=== PATIENT | female | born 1990 | race African-American/Black ===

== ENCOUNTER 2017-07-18 12:07 | Inpatient (IN) | payer OTHER ==
[~2017-07-18] VITALS: Ht 157.5 cm; Wt 61.1 kg
--- NOTE | ~2017-07-18 | HC ---
[facility] [place] [address] CONSULTATION Name: NEWMANHARJEET Cruz Yolanda Room #: 516-1 ADM IN M.R.#: [id number] Admission: 07/18/17 Attend Phys: Khai Salmeron MD Discharge: Date of : 89 Report #: [id number] THIS REPORT FOR: //name// CC: Khia Salmeron [facility] unknown DATE OF SERVICE: 07/19/2017 HISTORY OF PRESENT ILLNESS: This is a 26-year-old female patient who has a lot of speech difficulty. History is difficult to get. I do not have a record from [place]. I reviewed the records here and tried to get the history from her. It would appear that she had a pretty severe encephalopathy following a bronchial asthma attack. This patient has developed intention myoclonus. It looks like the neurologist at [place] saw this patient and subsequently, they talked to the [facility] and did multiple testings, like MRI, EEG and LP and that was nonrevealing and she is on Keppra at the moment. She never had this activity prior to this happening. REVIEW OF SYSTEMS: Positive for asthma and what looks like hypoxic encephalopathy. Her speech is markedly impaired. Prior to this, she was healthy. This is her relevant 14-point review of system. PAST MEDICAL HISTORY: Negative for neurological problem. SOCIAL HISTORY: She was independent before this happened. FAMILY HISTORY: Unremarkable. PHYSICAL EXAMINATION: NEUROLOGIC: Her examination is limited. She has a very limited speech. It is very difficult to understand, but she can talk some. I believe her cranial nerve examination the way while it can be done was unremarkable. She moves all 4 extremities, but she has a severe intention tremor in all 4 extremities. She can appreciate the positions as the best I can tell. Reflexes are symmetrical. CARDIAC EXAMINATION: Unremarkable. LUNGS: No respiratory difficulties present. VITAL SIGNS: Blood pressure is 111/75, respiration is 16, pulse is 96 and temperature is 98.2. LABORATORY DATA: Last WBC and CBC were normal. 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 This is very severe. I do not believe any effective treatment is available for this. She has already been referred to the tertiary care center. That is where she should be managed by movement disorder specialist. I do not have anything specific to add and I will suggest contacting [facility] to see if they have anything [address] [address] CONSULTATION Name: NEWMANHARJEET D Room #: 516-1 ADM IN M.R.#: [id number] Admission: 07/18/17 Attend Phys: Khai Salmeron MD Discharge: Date of : 89 Report #: [id number] else to offer, because she should be managed by a movement disorder specialist. Thank you very much for this referral and if you have any questions, please feel free to contact me. <ELECTRONICALLY SIGNED> By: Randolph Merchant MD 07/24/17 [phone] MD raghu Parra
--- NOTE | ~2017-07-18 | PLAN ---
[facility] [place] [address] REHAB UNIT PLAN OF CARE Name: NEWMANHARJEET D Room #: 516-1 ADM IN M.R.#: [id number] Admission: 07/18/17 Attend Phys: Khai Salmeron MD Discharge: Date of : 89 Report #: [id number] THIS REPORT FOR: //name// CC: Khai Salmeron [facility] unknown DATE OF SERVICE: 07/20/2017 ASSESSMENT: 1. Critical illness myopathy. 2. 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 3. Status asthmaticus his intubation 06/24/2017 to 07/02/2017. 4. Cardiac arrest with respiratory failure. 5. Dysphagia. Speech therapy is involved. 6. Significant functional mobility and ADL deficits. 7. Dysarthria. 8. THC abuse. PLAN: The overall plan of care is based on the preadmission screen, post-admission physician evaluation and information garnered from therapy assessments. 1. Estimated length of stay is probably at least 2-3 weeks pending progress. 2. Medical prognosis is reasonably good. 3. Anticipated interventions includes the interdisciplinary acute inpatient rehabilitation program. 4. Anticipated functional outcomes would be for the patient to become modified independent with transfers, mobility and ADLs, so that she can hopefully return back to her prior living situation. Goals to improve overall cognition and communication as well. 5. Anticipated functional outcomes would be for the patient to become as independent as possible to try to get into the home setting. Ideally, we can get her independent at least at the wheelchair level initially. 6. Discharge destination would be back home with significant other. 7. Expected therapy by discipline includes PT and OT and speech 1 hour per day each five days a week throughout the duration of the acute inpatient patient's stay. <ELECTRONICALLY SIGNED> By: Khai Salmeron MD 07/25/17 1645 0924 [id number] Khia Salmeron MD /[facility]
--- NOTE | ~2017-07-18 | PLAN ---
[facility] [place] [address] REHAB UNIT PLAN OF CARE Name: HARJEET NEWMAN Yolanda Room #: 516-1 ADM IN M.R.#: [id number] Admission: 07/18/17 Attend Phys: Khai Salmeron MD Discharge: Date of : 89 Report #: [id number] THIS REPORT FOR: //name// CC: Khai Salmeron [facility] unknown DATE OF SERVICE: 07/20/2017 The patient was seen earlier. She was sleepy, in no distress. Last recorded temperature is 98.2, pulse 96, respirations 16. She has been working in therapies with transfers at a max assist. Gait was mod assist 10 feet parallel bars. Bed mobility was min assist. In occupational therapy, upper body dressing is dependent with lower body dressing dependent. She had mild comprehensive deficits. She is on mechanical soft, thin liquid diet. ASSESSMENT: 1. Critical illness myopathy. <ELECTRONICALLY SIGNED> By: Khai Salmeron MD 07/25/17 1647 0921 0958 Khai Salmeron MD /[facility]
--- NOTE | ~2017-07-18 | HC ---
[facility] [place] [address] CONSULTATION Name: HARJEET NEWMAN Yolanda Room #: 516-1 ADM IN M.R.#: [id number] Admission: 07/18/17 Attend Phys: Khai Salmeron MD Discharge: Date of : 89 Report #: [id number] THIS REPORT FOR: //name// CC: Khai Salmeron [facility] unknown DATE OF SERVICE: 07/19/2017 REASON FOR CONSULTATION: Asthma. IMPRESSION: 1. Respiratory failure with status asthmaticus. 2. Cardiac arrest. 3. Dysphagia. 4. Myopathy, myoclonus. PLAN: Continue aerosol therapy, check for DVT, DVT and ulcer prophylaxis per primary, continuous sat monitor tonight, may discontinue in a.m. if stable. HISTORY OF PRESENT ILLNESS: By report, a 26-year-old female with history of asthma, had status asthmaticus at [facility] with acute hypercapnic respiratory failure, bradycardia and arrest, was in ICU, extubated on 07/02/2017, has had myoclonus, dysphagia since. We will obtain further records. ALLERGIES: None known. MEDICATIONS: Clonazepam, Pepcid, Keppra, albuterol. SOCIAL HISTORY: Negative current tobacco, ETOH, per chart marijuana. FAMILY HISTORY: Noncontributory. PAST SURGICAL HISTORY: In the past included trach when she was a child, taking out at 2. REVIEW OF SYSTEMS: No fever, chills or sweats. History of asthma, myoclonus, dysphagia, recent pneumonia. No dysuria, no edema. No history of DVT or PE. PHYSICAL EXAMINATION: EYES: Negative icterus. NECK: Negative JVD. LUNGS: Mild expiratory wheeze. HEART: Regular. ABDOMEN: Bowel sounds present. Scarred neck. EXTREMITIES: Show no edema. NEUROLOGIC: Alert, oriented, and answers questions appropriately. [facility] [address] [place] [address] CONSULTATION Name: NEWMANHARJEET Room #: 516-1 ADM IN [facility]#: [id number] Admission: 07/18/17 Attend Phys: Khai Salmeron MD Discharge: Date of : 89 Report #: [id number] LABORATORY DATA: White count is 9.7, hemoglobin 10.5, platelets 270. BUN is 14, creatinine 0.6. UA negative. <ELECTRONICALLY SIGNED> By: Chas Wyatt MD 07/24/17 1922 1550 0344 Chas Wyatt MD /nt
--- NOTE | ~2017-07-18 | H ---
[facility] [place] [address] HISTORY AND PHYSICAL Name: HARJEET NEWMAN Yolanda Room #: 516-1 ADM IN M.R.#: [id number] Admission: 07/18/17 Attend Phys: Khai Salmeron MD Discharge: Date of : 89 Report #: [id number] THIS REPORT FOR: //name// CC: Khai Salmeron [facility] unknown DATE OF SERVICE: 07/18/2017 HISTORY AND PHYSICAL/POST-ADMISSION PHYSICIAN EVALUATION HISTORY OF PRESENT ILLNESS: The patient is a 26-year-old -[place] female who was admitted to [facility] on 06/24/2017 with shortness of breath with acute hypercapnic respiratory failure with status asthmaticus. She was noted to be hypoxic, was intubated in the Emergency Department. She continued on intubation until 07/02/2017. She had a cardiac arrest in the Emergency Department. She was noted to have the findings of significant myoclonus noted to be an action myoclonus. Neurology was involved at [facility] and they were in contact with Neurology, Dr. Saunders at [facility]. [facility] suggested Nino-Hoyt syndrome. Head CT, brain MRI without contrast, EEG, LP for CSF exam showed no evidence of acute CVA, brain tumor, cysts, seizure activity, meningitis, multiple sclerosis, lupus, etc. The patient is on Keppra, which she feels helps with the myoclonus and clonazepam. This is noted to be an action myoclonus, which is worse with attempted activity, better with rest. The patient also had significant swallowing difficulties and was on TPN for a considerable period of time and then was able to begin swallowing. At the time of discharge, she is noted to be taking about 75% of her meals over at [place]. She is noted to have significant functional mobility and ADL deficits and has now been admitted for acute in-hospital inpatient rehabilitation. PAST MEDICAL HISTORY: Asthma. She had the recent events as noted above. PAST SURGICAL HISTORY: Negative. HABITS: No history of tobacco or alcohol abuse. There is a history of marijuana usage. MEDICATIONS: Please see the full medication listing as noted. Each of these was individually reconciled and includes vitamins, herbals, and supplements. ALLERGIES: No known drug allergies. SOCIAL HISTORY: She has 4 children. She was previously fully independent. Apparently worked as a [employer] in the past. Plans on living with her significant other in a house. She apparently is not working outside the home at this time and is busy transporting the children and caring for the children. There [address] [place] [address] HISTORY AND PHYSICAL Name: HARJEET NEWMAN Yolanda Room #: 516-1 [facility] IN [facility].#: [id number] Admission: 07/18/17 Attend Phys: Khai Salmeron MD Discharge: Date of : 89 Report #: [id number] steps into the house. REVIEW OF SYSTEMS: Did not offer any current complaints of chest pain, shortness of breath or abdominal discomfort. She notes that the myoclonus is improved after the Keppra. No focal extremity pain complaints. PHYSICAL EXAMINATION: GENERAL: She is a pleasant 26-year-old -[place] female in no obvious distress. VITAL SIGNS: Last recorded temperature is 98.3, pulse 103, respirations 18, blood pressure 110/65. HEENT: The patient is alert. She is pleasant. She is thin. She has soft speech and has difficulty finishing long sentences due to fatigue. She has to talk slowly. EOMs appeared to be full. Facies are symmetric. CHEST: Sounded clear to auscultation. CARDIOVASCULAR: Regular rate and rhythm. ABDOMEN: Bowel sounds positive, nontender. GENITOURINARY AND RECTAL: Deferred. She was sitting on the edge of the bed. I tried to test her upper and lower extremities forward range of motion and volitional movement, but whenever I tried to last picker the extremity or do a gentle range, she would essentially go into a myoclonic episode involving both upper and lower extremities with extension of the upper and lower extremities. This would last for a brief period of a few seconds and then settled down again. If she attempted to move her arm. She again would trigger the myoclonic episode. There is no focal calf swelling. She has been needing assistance with functional transfers noted to vary some and has been at a mod assist. ASSESSMENT: A 26-year-old -[place] female with the following problem list: 1. Critical illness myopathy. 2. Action myoclonus post-cardiac arrest. 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 3. Status asthmaticus with intubation on 06/24/2017 to 07/02/2017. 4. Cardiac arrest with respiratory failure. 5. Dysphagia. She is now on a special diet per speech therapy. She is on thin liquids. 6. Significant functional mobility and activities of daily living deficits. 7. Dysarthria. She has difficulty with prolonged sentences secondary to fatigue. 8. Tetrahydrocannabinol abuse. PLAN: From a postadmission physician evaluation perspective, there are no relevant changes since the preadmission screening. Please see the above review of prior and current medical and functional conditions and comorbidities. Please see the patient's previous and current functional status. As far as risk of complications, the patient does have the above noted comorbidities. Initial [facility] [address] [place] [address] HISTORY AND PHYSICAL Name: HARJEET NEWMAN Yolanda Room #: 516-1 ADM IN M.R.#: [id number] Admission: 07/18/17 Attend Phys: Khai Salmeron MD Discharge: Date of : 89 Report #: [id number] plan of care involves the interdisciplinary acute inpatient rehabilitation program with the goal of maximizing the patient's functional independence, so that she can hopefully return back to her prior living situation. Prognosis is reasonably good with estimated length of stay probably several weeks. Potential barriers would include her multiple medical comorbidities with her decreased functional status. Internal Medicine has been consulted and I am going to ask Neurology to follow along as well to help monitor her medication management for the action myoclonus. We are hoping to maximize her functional independence here on the rehab manzo, so we can get her back into the home setting with her significant other. <ELECTRONICALLY SIGNED> By: Khai Salmeron MD 07/25/17 1643 0819 0917 Khai Salmeron MD /[facility]
--- NOTE | ~2017-07-18 | HC ---
[facility] [place] [address] CONSULTATION Name: HARJEET NEWMAN Yolanda Room #: 516-1 ADM IN M.R.#: [id number] Admission: 07/18/17 Attend Phys: Khai Salmeron MD Discharge: Date of : 89 Report #: [id number] THIS REPORT FOR: //name// CC: Khai Salmeron [facility] unknown DATE OF SERVICE: 07/21/2017 Neurobehavioral Status Exam: ATTENDING PHYSICIAN: Khai Salmeron MD. GOLF CART REPAIRER: Gildardo Hernandez, PhD. CLINICAL PRESENTATION: The patient is a 26-year-old female admitted to the [facility] rehabilitation unit for comprehensive inpatient rehabilitation program to improve functional mobility, activities of daily living and self-care and mental status secondary to deficits from a critical illness myopathy. Her diagnoses include acute myoclonus post-cardiac arrest consistent with Nino-Hoyt syndrome, status asthmaticus with intubation on 06/24/2017-07/02/2017, cardiac arrest with respiratory failure, dysphagia, significant functional mobility and activities of daily living deficits, dysarthria and tetrahydrocannabinol abuse. A complete description of her medical condition and history along with medications can be found in her medical record. Neuropsychological consultation was requested to provide assistance in the assessment of cognitive and emotional status and to provide recommendations and services. Prior to this most recent medical event, she was living independently in her own home with a significant other. She had been living with the father of her children. The patient has four children. She is a high school graduate with one brother. She does not report a history of treatment for depression/anxiety, substance abuse or cognitive deficits from concussion. 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 TECHNIQUES UTILIZED: Clinical interview, review of medical records, staff consultation and behavioral observation, mini mental status exam 2 standard version. EXAMINATION FINDINGS: The patient was alert and cooperative with the assessment. She accurately described having "coded" as the reason for her current need for treatment. Her speech is very effortful and weak. Breathe support during expressive speech is poor. She reports subjective feelings of anxiety and sadness about her current condition. She does not report difficulty with memory or word finding, although speech is very effortful. [facility] [address] [place] [address] CONSULTATION Name: NEWMANHARJEET D Room #: 516-1 [facility] IN [facility].#: [id number] Admission: 07/18/17 Attend Phys: Khai Salmeron MD Discharge: Date of : 89 Report #: [id number] Her performance on the MMSE 2 brief version is in the moderate range of impairment with a raw score of 13-16, T score 28, percentile rank of 1. She was 3/3 for initial registration, 5/5 for orientation to time and 5/[address]. She was 0/3 for immediate recall of 3 items after a brief time delay and distraction. Performance on the MMSE 2 standard version was 22/30, which is a T score 22 and a percentile rank of less than 1, which suggests moderate to severe impairment. She was 1/5 for serial sevens, 2/2 for naming, 1/1 for repetition, 3/3 for auditory comprehension. She could read and follow a single command. She presents with a severe upper extremity tremor which interferes with writing and constructive tasks. She was able to dictate a sentence. This type of presentation suggests fairly severe impairment in memory and moderate to severe deficits in concentration. She is alert and well oriented. DIAGNOSTIC IMPRESSION: Neurocognitive disorder, due to hypoxia, without behavior disorder -- extent to be determined, moderate at this time. Adjustment disorder with anxious mood. RECOMMENDATIONS: The patient will benefit from frequent praise and compliments about her participation and success during therapies. Continued orientation and repetition to assist general cognitive functioning. Deficits in memory are likely to persist and interfere with follow-through and carryover of newly learned tasks. Additionally, it will be important for her to sustain attention and concentrate with completion of one task at a time. A followup neuropsychological evaluation will be of benefit in approximately 3 months post-hospitalization to clarify the severity of cognitive deficits. At this time, the patient will require 24-hour care to assist with the management of medication, nutrition and financial decision making. Disability is indicated. Thank you very much for allowing me to provide the consultation on this patient. <ELECTRONICALLY SIGNED> By: Gildardo Hernandez, PhD 07/24/17 1916 1619 07 Gildardo Hernandez, PhD /nt
[2017-07-18 18:18] VITALS: BP 101/73
[2017-07-18 19:28] VITALS: BP 110/65
[2017-07-19 06:16] LABS: HEMATOCRIT 32.1 % (37.0-47.0); HEMOGLOBIN 10.5 gm/dL (12.0-15.0); MCH 26.5 pg (26.0-34.0); MCHC 32.8 g/dL (28.0-37.0); MCV 80.9 fL (80.0-100.0); RBC 3.97 mil/uL (4.20-5.00); RDW 15.8 % (10.5-14.5); WBC 9.7 thou/uL (4.0-11.0)
[2017-07-19 06:28] LABS: CALCIUM 9.1 mg/dL (8.5-10.1); CREATININE 0.6 mg/dL (0.6-1.0); POTASSIUM 3.7 mmol/L (3.5-5.1)
[2017-07-19 06:55] LABS: URINE BILIRUBIN NEGATIVE (Negative); URINE BLOOD NEGATIVE (Negative); URINE CLARITY CLEAR; URINE COLOR YELLOW; URINE GLUCOSE-RANDOM* NEGATIVE (Negative); URINE KETONES NEGATIVE (Negative); URINE LEUKOCYTES-REFLEX NEGATIVE (Negative); URINE NITRITE-REFLEX NEGATIVE (Negative); URINE PROTEIN (DIPSTICK) NEGATIVE (Negative); URINE SPECIFIC GRAVITY 1.025 (1.005-1.035); URINE UROBILINOGEN 0.2 E.U./dl (0.2-1.0)
[2017-07-19 08:00] VITALS: BP 111/75
[2017-07-19 19:56] VITALS: BP 95/66
[2017-07-19 23:04] LABS: TSH 1.122 uIU/mL (0.358-3.740)
[2017-07-20 07:02] VITALS: BP 88/57
[2017-07-20 09:17] VITALS: BP 96/66
[2017-07-20 20:01] VITALS: BP 98/64
[2017-07-21 08:00] VITALS: BP 95/63
[2017-07-21 19:37] VITALS: BP 94/62
[2017-07-22 07:30] VITALS: BP 94/66
[2017-07-22 19:10] VITALS: BP 90/62
[2017-07-23 08:15] VITALS: BP 103/55
[2017-07-23 19:58] VITALS: BP 94/61
[2017-07-24 08:00] VITALS: BP 106/57
[2017-07-24 19:43] VITALS: BP 90/58
[2017-07-25 08:00] VITALS: BP 104/68
[2017-07-25 20:40] VITALS: BP 108/76
[2017-07-26 08:00] VITALS: BP 93/53
[2017-07-26 20:30] VITALS: BP 96/54
[2017-07-27 08:15] VITALS: BP 100/69
[2017-07-27 20:07] VITALS: BP 99/60
[2017-07-28 10:08] VITALS: BP 100/64
[2017-07-28 19:58] VITALS: BP 103/69
[2017-07-29 09:01] VITALS: BP 93/69
[2017-07-29 19:57] VITALS: BP 107/61
[2017-07-30 08:00] VITALS: BP 103/66
[2017-07-30 20:17] VITALS: BP 101/57
[2017-07-31 08:00] VITALS: BP 105/72
[2017-07-31 20:01] VITALS: BP 91/67
[2017-08-01 08:00] VITALS: BP 107/72
[2017-08-01] MEDS ORDERED: CLONAZEPAM 0.50.5 M1 PO (13:23)
[2017-08-01] MEDS ORDERED: COLACE100 MG PO (13:24)
[2017-08-01] MEDS ORDERED: KEPPRA 500 MG500 M1 PO (13:24)
[2017-08-01] MEDS ORDERED: PULMICORT0.5 MG/21 INH (13:24)
[2017-08-01] MEDS ORDERED: ALBUTEROL2.5 MG/31 INH (13:24)
[2017-08-01] MEDS ORDERED: DUONEB 2.5-0.5 M3 ML INH (13:24)
[2017-08-01 20:02] VITALS: BP 100/67; BP 115/53
[2017-08-02 08:42] VITALS: BP 100/67
[2017-08-02 09:00] VITALS: BP 103/51
[2017-10-22] MEDS ORDERED: KEPPRA 500 MG500 M1 PO (15:02)
[2017-10-23] MEDS ORDERED: COLACE100 MG PO (10:19)
[2017-10-23] MEDS ORDERED: CLONAZEPAM 0.50.5 M1 PO (10:19)
[2017-11-05] MEDS ORDERED: DUONEB 2.5-0.5 M3 ML INH (14:01)
[2017-11-05] MEDS ORDERED: CYCLOBENZAPRINE5 MG PO (14:01)
[2017-11-05] MEDS ORDERED: PEPCID20 MG PO (14:01)
[2017-11-05] MEDS ORDERED: AMBIEN 5 MG TABL5 MG PO (14:01)
[2017-11-05] MEDS ORDERED: IBUPROFEN 400400 M2 PO (14:01)
[2017-11-05] MEDS ORDERED: ENOXAPARIN40 MG/0.1 SUBQ (14:01)
[2017-11-05] MEDS ORDERED: CLONAZEPAM 0.50.5 M1 PO (14:01)
[2017-11-05] MEDS ORDERED: MIRALAX17 GM PO (14:01)
[2017-11-05] MEDS ORDERED: KEPPRA 500 MG500 MG PO (14:01)
== END 2017-08-02 12:53 | disposition home health service (06) | DRG 91 ==
PROVIDERS: Nurse Practitioner; Physical Medicine & Rehabilitation; Psychiatry & Neurology Neuromuscular Medicine
DX: G72.81 Critical illness myopathy (principal); J96.91 Respiratory failure, unspecified with hypoxia; J45.909 Unspecified asthma, uncomplicated; G72.9 Myopathy, unspecified; G25.3 Myoclonus; F12.10 Cannabis abuse, uncomplicated; R47.1 Dysarthria and anarthria; R41.9 Unspecified symptoms and signs involving cognitive functions and awareness; F43.22 Adjustment disorder with anxiety; R26.81 Unsteadiness on feet; I45.9 Conduction disorder, unspecified; D64.9 Anemia, unspecified; R13.10 Dysphagia, unspecified; Z86.74 Personal history of sudden cardiac arrest; Z93.0 Tracheostomy status; Z28.21 Immunization not carried out because of patient refusal
CPT/HCPCS: 10092; 10112

== ENCOUNTER 2017-11-05 15:54 | Inpatient (IN) | payer OTHER ==
[~2017-11-05] VITALS: Ht 157.5 cm; Wt 58.7 kg
--- NOTE | ~2017-11-05 | H ---
[facility] [place] [address] HISTORY AND PHYSICAL Name: NEWMANHARJEET Room #: 506-1 [facility] IN M.R.#: [id number] Admission: 11/05/17 Attend Phys: Khai Salmeron MD Discharge: 11/14/17 Date of : 88 Report #: [id number] THIS REPORT FOR: //name// CC: Khai Salmeron [facility] unknown DATE OF SERVICE: 11/06/2017 HISTORY AND PHYSICAL/POSTADMISSION PHYSICIAN EVALUATION HISTORY OF PRESENT ILLNESS: The patient is a 26-year-old -[place] female previously known to me, originally admitted to [facility] on 06/24/2017 with shortness of breath, acute hypercapnic respiratory failure with status asthmaticus. She was intubated, continued on intubation until 07/02/2017. She had a cardiac arrest, was noted to have significant findings of noted to be action myoclonus. Neurology was involved at [facility] and they were in contact with Neurology, Dr. Saunders at [facility]. [facility] suggested Nino-Hoyt syndrome. The patient had a thorough workup at that time. She was placed on Keppra, which she felt helped the myoclonus as well as clonazepam. She was noted to have an action myoclonus worse with attempted activity, better with rest. She was on the inpatient rehabilitation manzo at [facility] from 07/18/2017 through 08/02/2017. She was discharged at that time on clonazepam 0.5 t.i.d. with Keppra 500 mg tablet dose of 1500 mg b.i.d. She apparently did not have any home healthcare as she indicated that she did not have a permanent address for them to come out to see her. She had been living with her significant other and their children and apparently going back and forth between a couple of homes that the patient's significant other's parents have. He is typically gone during the day caring for the children and she is at home and has been wheelchair bound. She has had problems with frequent falls and utilizing the wheelchair. The only time she was able to ambulate was when he would hold on to her with a gait belt. She was readmitted to [facility]. Internal Medicine has been caring for her and noted that the longstanding palsy from the anoxic brain injury is unlikely to recover. [employer] has been involved with attempts to obtain disability and possibly a usp bed. She has now been readmitted for acute in-hospital inpatient rehabilitation. PAST MEDICAL HISTORY: Well delineated above. She had the respiratory failure, cardiac arrest, severe asthma with events as noted above. PAST SURGICAL HISTORY: Negative. HABITS: No history of tobacco or alcohol abuse. MEDICATIONS: Please see the full medication listing. Each of these was individually reconciled and includes the patient's vitamins, herbals, and [address] [address] HISTORY AND PHYSICAL Name: NEWMANMINERVA CruzRA Guerrero Room #: 506-1 [facility] IN M.R.#: [id number] Admission: 11/05/17 Attend Phys: Khai Salmeron MD Discharge: 11/14/17 Date of : 88 Report #: [id number] supplements. ALLERGIES: No known drug allergies. SOCIAL HISTORY: As noted above. 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 She lives with her significant other and she has four children. REVIEW OF SYSTEMS: No complaints of chest pain, shortness of breath, or abdominal discomfort. She has the myoclonus and the history of frequent falls. PHYSICAL EXAMINATION: GENERAL: A 26-year-old -[place] female seen earlier in no distress. VITAL SIGNS: Temperature 98.7, pulse 113, respirations 20, blood pressure 103/69. Sleepy, but would arouse, able to verbalize, has to take a breath intermittently noted to speak in sentences. CHEST: Sounded clear to auscultation. CARDIOVASCULAR: Regular rate and rhythm. ABDOMEN: Bowel sounds positive, nontender. GENITOURINARY AND RECTAL: Deferred. HEENT: Facies appeared symmetric. EXTREMITIES: She has intermittent myoclonic episodes of both upper and lower extremities. They tend to be worse with activity. Strength is probably a grade 4-/5. No focal calf swelling. Functionally, she has been needing min assist with basic transfers prior to admitting to the rehab manzo. She has ambulated up to 25 feet, max assist. ASSESSMENT: 1. Action myoclonus, post-cardiac arrest appears consistent with Nino-Hoyt syndrome. 2. Gait instability with multiple falls. 3. Prior history of critical illness myopathy. 4. Cardiac arrest with respiratory failure. 5. Status asthmaticus with prior intubation from 06/24/2017-07/02/2017. 6. THC abuse. PLAN: The patient is admitted for acute in-hospital inpatient rehabilitation. From a postadmission physician evaluation perspective, there are no relevant changes since the preadmission screening. Please see the above review of prior and current medical and functional conditions and comorbidities. Please see the patient's previous and current functional status. As far as risk of complications, she has the above noted multiple medical comorbidities. The plan of care involves the interdisciplinary acute inpatient rehabilitation program with goal of maximizing the patient's functional independence and working on [address] [address] HISTORY AND PHYSICAL Name: HARJEET NEWMAN Room #: 506-1 [facility] IN M.R.#: [id number] Admission: 11/05/17 Attend Phys: Khai Salmeron MD Discharge: 11/14/17 Date of : 88 Report #: [id number] discharge planning issues from here. Potential barriers would include her significant functional deficits with her action myoclonus. <ELECTRONICALLY SIGNED> By: Khai Salmeron MD 11/20/17 1504 [id number] Khai Salmeron MD /PMT
--- NOTE | ~2017-11-05 | PLAN ---
[facility] [place] [address] REHAB UNIT PLAN OF CARE Name: NEWMANHARJEET D Room #: 506-1 [facility] IN M.R.#: [id number] Admission: 11/05/17 Attend Phys: Khai Salmeron MD Discharge: 11/14/17 Date of : 88 Report #: [id number] THIS REPORT FOR: //name// CC: Khai Salmeron [facility] unknown DATE OF SERVICE: 11/07/2017 SUBJECTIVE: The patient is seen back in followup. She is in no distress. Last recorded temperature 36.5, pulse 86, respirations 16, blood pressure 117/81. She is in no distress. No calf swelling. Transfers are mod assist. Gait mod assist 15 feet with a front-wheeled walker. In occupational therapy, lower body dressing is min assist. ASSESSMENT: 1. 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 2. Gait instability with multiple falls. 3. Prior history of critical illness myopathy. 4. Cardiac arrest with respiratory failure. 5. Status asthmaticus with prior intubation from 06/24/2017-07/02/2017. 6. THC abuse. PLAN: 1. Overall plan of care is based on the preadmission screen, post-admission physician evaluation and information garnered from therapy assessments. Estimated length of stay will be dependent upon how she does. 2. Medical prognosis is reasonably good. 3. Anticipated interventions includes the interdisciplinary acute inpatient rehabilitation program. 4. Anticipated functional outcomes would be for her to hopefully improve with her gait, mobility, balance. ADLs at the walker level. 5. Discharge destination is currently being worked on with case management. 6. Expected therapy by discipline includes PT and OT 1 to 1-1/2 hours per day, each five days a week throughout the duration of the acute inpatient rehabilitation stay. Speech therapy is also involved regarding her breath support issues with her action myoclonus. <ELECTRONICALLY SIGNED> By: Khai Salmeron MD 11/20/17 1504 [id number] 0006 Khai Salmeron MD /nt
--- NOTE | ~2017-11-05 | HC ---
[facility] [place] [address] CONSULTATION Name: HARJEET NEWMAN Room #: 506-1 [facility] IN ..#: [id number] Admission: 11/05/17 Attend Phys: Khai Salmeron MD Discharge: 11/14/17 Date of : 88 Report #: [id number] THIS REPORT FOR: //name// CC: Khai Salmeron [facility] unknown DATE OF SERVICE: 11/06/2017 PURPOSE FOR CONSULTATION: To provide information relevant to treatment planning for the patient's comprehensive treatment program on the rehabilitation unit. HISTORY OF PRESENT ILLNESS: The patient, a 26-year-old -[place] female, was admitted to [facility] on 06/24/2017 believing herself to be having an asthma attack, with shortness of breath, which became acute hypercapnic respiratory failure. She was intubated. She reportedly had a cardiac arrest and was resuscitated. 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 She was in inpatient rehabilitation at [facility] from 07/18/2017 until 08/02/2017, and now has returned following difficulties at home where she apparently had problems with access to ongoing care and was having trouble with falls and with managing her wheelchair. PERSONAL AND SOCIAL HISTORY: The patient lives with her significant other and their young children. 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 Methods employed in the examination included review of records, consultation with unit staff, clinical interview and the mini mental status exam too. Results of the examination were as follows: The patient was seated in her bed in an upright position, and was awake and alert at the time of the examination. She communicated in an organized and goal directed manner, although her speech was disrupted by her myoclonus. This also limits her ability to write and draw in an effective manner. With regard to mood, she stated that she tries to be positive, but is somewhat overwhelmed because so much has happened. She is trying to get social security disability benefits and is worried about insurance and financial concerns. Observed mood was of mild to moderate anxiety. Results of the mini mental status exam indicated some impairment in concentration, with difficulty at a mild level with recall and with difficulty maintaining concentration and focus on the calculation task. Aside from these two areas, all areas of mental status or cognition appeared to be intact. CONCLUSIONS: The patient, in addition to her medical diagnoses documented elsewhere, appears to have an adjustment disorder with anxiety, and would [address] [address] CONSULTATION Name: HARJEET NEWMAN Room #: 506-1 [facility] IN M.R.#: [id number] Admission: 11/05/17 Attend Phys: Khai Salmeron MD Discharge: 11/14/17 Date of : 88 Report #: [id number] benefit from supportive psychotherapy to learn cognitive behavioral methods to manage and decrease her anxiety and distress as she attempts to adapt to these severe and sudden life changes. <ELECTRONICALLY SIGNED> By: Khai Hoyos, PhD 11/21/17 1120 2034 0406 Khai Hoyos, PhD /nt
[~2017-11-05 15:54] MED LIST: ALBUTEROL2.5 MG/31 INH; AMBIEN 5 MG TABL5 MG PO; CLONAZEPAM 0.50.5 M1 PO; COLACE100 MG PO; CYCLOBENZAPRINE5 MG PO; DUONEB 2.5-0.5 M3 ML INH; ENOXAPARIN40 MG/0.1 SUBQ; IBUPROFEN 400400 M2 PO; KEPPRA 500 MG500 M1 PO; KEPPRA 500 MG500 MG PO; MIRALAX17 GM PO; PEPCID20 MG PO; PULMICORT0.5 MG/21 INH
[2017-11-05 20:30] VITALS: BP 103/69
[2017-11-06 05:04] LABS: HEMATOCRIT 34.4 % (37.0-47.0); MCH 24.4 pg (26.0-34.0); MCV 76.2 fL (80.0-100.0); RBC 4.51 mil/uL (4.20-5.00); RDW 16.2 % (10.5-14.5); WBC 6.2 thou/uL (4.0-11.0)
[2017-11-06 05:17] LABS: ALBUMIN 3.3 g/dL (3.4-5.0); CREATININE 0.7 mg/dL (0.6-1.0); MAGNESIUM 1.9 mg/dL (1.8-2.4); TOTAL BILIRUBIN 0.2 mg/dL (<0.1-1.0); TOTAL PROTEIN 6.8 g/dL (6.4-8.2)
[2017-11-06 07:45] VITALS: BP 115/73
[2017-11-06 19:57] VITALS: BP 101/66
[2017-11-07 07:21] VITALS: BP 117/81
[2017-11-07 20:12] VITALS: BP 101/61
[2017-11-08 07:30] VITALS: BP 106/64
[2017-11-08 21:28] VITALS: BP 104/65
[2017-11-09 07:45] VITALS: BP 93/68
[2017-11-09 20:06] VITALS: BP 89/57
[2017-11-10 09:30] VITALS: BP 145/74; BP 97/61
[2017-11-10 19:52] VITALS: BP 107/65
[2017-11-11 08:07] VITALS: BP 95/67
[2017-11-11 19:15] VITALS: BP 95/62
[2017-11-12 07:30] VITALS: BP 105/71
[2017-11-12 19:30] VITALS: BP 98/66
[2017-11-13 07:30] VITALS: BP 93/62
[2017-11-13 20:35] VITALS: BP 97/58
[2017-11-14 08:20] VITALS: BP 100/62
[2017-11-14] MEDS ORDERED: ZANAFLEX4 MG PO (15:22)
== END 2017-11-14 17:02 | disposition home or self-care (01) | DRG 91 ==
LOC: ENTRNSPT 11-14 16:50
PROVIDERS: Physical Medicine & Rehabilitation
DX: G25.3 Myoclonus (principal); J96.22 Acute and chronic respiratory failure with hypercapnia; J45.902 Unspecified asthma with status asthmaticus; G72.81 Critical illness myopathy; G93.1 Anoxic brain damage, not elsewhere classified; I45.9 Conduction disorder, unspecified; R26.9 Unspecified abnormalities of gait and mobility; G80.9 Cerebral palsy, unspecified; D64.9 Anemia, unspecified; F12.10 Cannabis abuse, uncomplicated; Z99.3 Dependence on wheelchair; Z91.81 History of falling
CPT/HCPCS: 10112

== ENCOUNTER 2019-08-24 10:30 | Emergency (ER) | payer OTHER ==
[~2019-08-24] VITALS: Ht 157.5 cm; Wt 49.9 kg
[~2019-08-24 10:30] MED LIST changes: +ZANAFLEX4 MG PO
[2019-08-24 11:31] LABS: HEMATOCRIT 35.8 % (37.0-47.0); HEMOGLOBIN 11.1 gm/dL (12.0-15.0); MCH 25.2 pg (26.0-34.0); MCV 81.3 fL (80.0-100.0); RBC 4.41 mil/uL (4.20-5.00); RDW 19.1 % (10.5-14.5); WBC 8.2 thou/uL (4.0-11.0)
[2019-08-24 11:36] LABS: CALCIUM 8.6 mg/dL (8.5-10.1); POTASSIUM 3.9 mmol/L (3.5-5.1)
[2019-08-24 11:38] LABS: AMP/METHAMP Negative (Negative); BARBITURATES Negative (Negative); BENZODIAZEPINES Negative (Negative); COCAINE Negative (Negative); METHADONE Negative (Negative); OPIATES Negative (Negative); PCP Negative (Negative)
[2019-08-24 11:43] LABS: ALBUMIN 4.1 g/dL (3.4-5.0); MAGNESIUM 1.7 mg/dL (1.8-2.4); TOTAL BILIRUBIN 0.2 mg/dL (<0.1-1.0)
[2019-08-24] MEDS ORDERED: KLONOPIN0.5 MG PO (11:49)
[2019-08-24] MEDS ORDERED: KEPPRA750 MG PO (11:49)
[2019-08-24 12:41] VITALS: BP 118/79
--- NOTE | 2019-08-24 15:28 | EKG ---
[address] [address] ELECTROCARDIOGRAM REPORT Name: HARJEET NEWMAN Room #: [facility]#: [id number] Admission: 08/24/19 Attend Phys: Discharge: 08/24/19 Date of : 88 Report #: [id number] THIS REPORT FOR: //name// [facility] ED Test Date: 2019-08-24 Test Time: 10:40:39 Pat Name: HARJEET NEWMAN Department: Room: Gender: F Woods Superintendent: MICAELA : 1990 Requested By: Casper Ceballos Order Number: [id number] MD: Leon Wallace Measurements Intervals [place] Rate: 108 P: 51 UT: 136 QRS: 25 QRSD: 92 T: 55 QT: 361 QTc: 484 Interpretive Statements Sinus tachycardia No previous ECG available for comparison Electronically Signed On 08-24-2019 15:27:19 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
== END 2019-08-24 12:50 | disposition home or self-care (01) ==
LOC: ER 10:30
PROVIDERS: Emergency Medicine
DX: R56.9 Unspecified convulsions (principal); G25.3 Myoclonus; Z76.0 Encounter for issue of repeat prescription